=== PATIENT | female | born 1970 | race Caucasian/White ===

== ENCOUNTER 2025-05-24 13:15 | Emergency (ER) | payer OTHER ==
[2025-05-24 15:24] LABS: BASOPHILS ABSOLUTE AUTO 0.04 K/uL (0.00-0.10); BASOPHILS PERCENT AUTO 0.4 % (0.1-1.3); EOSINOPHILS ABSOLUTE AUTO 0.03 K/uL (0.00-0.40); EOSINOPHILS PERCENT AUTO 0.3 % (0.0-5.4); IMMATURE GRAN ABSOLUTE AUTO 0.03 K/uL (0.00-0.23); IMMATURE GRAN PERCENT AUTO 0.3 % (0.0-0.7); LYMPHOCYTES ABSOLUTE AUTO 1.60 K/uL (0.8-3.3); LYMPHOCYTES PERCENT AUTO 16.2 % (11.4-47.7); MONOCYTES ABSOLUTE AUTO 0.40 K/uL (0.20-0.90); MONOCYTES PERCENT AUTO 4.1 % (3.3-12.6); NEUTROPHILS ABSOLUTE AUTO 7.75 K/uL (1.0-7.6); NEUTROPHILS PERCENT AUTO 78.7 % (40.0-78.1); PLATELET COUNT,PLT 222 K/uL (130-375); RED BLOOD CELL COUNT 4.70 M/uL (3.77-5.24); WHITE BLOOD CELL COUNT,WBC 9.9 K/uL (3.2-11.0)
[2025-05-24 15:49] LABS: BLOOD UREA NITROGEN,BUN 9.0 mg/dL (7-18); CARBON DIOXIDE,CO2 26.0 mmol/L (21-32); CHLORIDE,CL 103.0 mmol/L (100-108); CREATININE 0.8 mg/dL (0.6-1.0); EST CRCL DRUG DOSING (CG) 76.13 mL/min; ESTIMATED GFR 88.0 mL/min (>60); GLUCOSE RANDOM 139.0 mg/dL (74-106); POTASSIUM,K 3.7 mmol/L (3.6-5.2); SODIUM,NA 138.0 mmol/L (140-148); TROPONIN I HIGH SENSITIVITY 6.3 pg/mL (<=60.3)
[2025-05-24 17:22] LABS: CORONAVIRUS COVID-19 NAA NEGATIVE (NEGATIVE); INFLUENZA A NAA NEGATIVE (NEGATIVE); INFLUENZA B NAA NEGATIVE (NEGATIVE); RESPIRATORY SYNCYTIAL VIR NAA NEGATIVE (NEGATIVE)
== END 2025-05-24 16:33 | disposition home or self-care (01) ==
LOC: JP.ED 13:15
DX: I10 Essential (primary) hypertension (principal); Z79.82 Long term (current) use of aspirin; Z79.899 Other long term (current) drug therapy
CPT/HCPCS: 36415; 80048; 84484; 85025; 87637; 93005; 99284